=== PATIENT | male | born 1960 | race Caucasian/White ===

== ENCOUNTER 2016-09-07 21:50 | Emergency (ER) | payer OTHER | END 2016-09-08 00:55 | disposition home or self-care (01) | LOC: ER 21:50 | DX: L25.9 Unspecified contact dermatitis, unspecified cause (principal); M10.071 Idiopathic gout, right ankle and foot; I10 Essential (primary) hypertension; Z79.899 Other long term (current) drug therapy | CPT/HCPCS: 96372; 99282-25 ==

== ENCOUNTER 2016-11-07 12:00 | Observation (INO) | payer OTHER ==
[~2016-11-07] VITALS: Ht 170.2 cm; Wt 84.9 kg
[2016-11-07 12:32] LABS: ALBUMIN 4.4 gm/dL (3.4-5.0); ALKALINE PHOSPHATASE 91 U/L (50-136); ALT/SGPT 20 U/L (7.53-40.17); AST/SGOT 22 U/L (6.66-35.34); BILIRUBIN,TOTAL 0.61 mg/dL (0.0-1.0); BLOOD UREA NITROGEN 10 mg/dL (7-18); CALCIUM 9.4 mg/dL (8.7-10.7); CARBON DIOXIDE 25 mmol/L (21-32); CREATINE KINASE 31 U/L (35-232); GLUCOSE,RANDOM 175 mg/dL (70-99); POTASSIUM 4.2 mmol/L (3.5-5.1); SODIUM 136 mmol/L (136-145); TOTAL PROTEIN 7.3 gm/dL (6.4-8.2)
[2016-11-07 12:56] LABS: GRAN # 8.1 10_X3_UL (1.8-5.4); HEMATOCRIT 42.9 % (40-51); HEMOGLOBIN 13.9 g/dl (13.7-17.5); LYMPH # 2.4 10_X3_UL (1.3-3.6); MEAN CORPUSCULAR HEMOGLOBIN 31.7 pg (27.0-33.0); MEAN CORPUSCULAR HGB CONC 32.4 g/dl (32.0-36.0); MEAN CORPUSCULAR VOLUME 97.9 fl (79-92); PLATELET COUNT 147 x10_3/UL (163-337); RED BLOOD COUNT 4.38 x10_6/ul (4.6-6.1); RED CELL DISTRIBUTION WIDTH 14.5 % (11.6-14.4); WHITE BLOOD COUNT 11.4 x10_3/ml (4.2-9.1)
[2016-11-07 12:57] LABS: GRAN % 70.8 % (34.0-67.9); LYMPH % 18.5 % (21.8-53.1); MIXED # 1.2 10_X3_UL (0-12); MIXED % 10.7 % (1.7-9.3)
[2016-11-07 18:35] LABS: CKMB < 1.0 ng/ml (0.0-5.0); TROP-I < 0.30 NG/ML (0.00-0.30)
[2016-11-08 00:37] LABS: CKMB < 1.0 ng/ml (0.0-5.0); TROP-I < 0.30 NG/ML (0.00-0.30)
[2016-11-08 07:05] LABS: CKMB < 1.0 ng/ml (0.0-5.0); TROP-I < 0.30 NG/ML (0.00-0.30)
== END 2016-11-08 12:42 | disposition home or self-care (01) ==
LOC: ER 12:00 → MS 14:03
PROVIDERS: General Practice; ADMIT Family Medicine
DX: R07.89 Other chest pain (principal); I10 Essential (primary) hypertension; M54.9 Dorsalgia, unspecified; K21.9 Gastro-esophageal reflux disease without esophagitis; M10.9 Gout, unspecified; F41.9 Anxiety disorder, unspecified; R06.02 Shortness of breath; J84.9 Interstitial pulmonary disease, unspecified; R79.1 Abnormal coagulation profile; Z79.899 Other long term (current) drug therapy; Z83.3 Family history of diabetes mellitus; Z80.9 Family history of malignant neoplasm, unspecified; Z82.49 Family history of ischemic heart disease and other diseases of the circulatory system; Z83.6 Family history of other diseases of the respiratory system; Z88.8 Allergy status to other drugs, medicaments and biological substances
CPT/HCPCS: 36415; 71010; 80053; 80061; 82550; 82553; 85025; 85379; 93005; 96372; 99070; 99285-25; G0378